=== PATIENT | male | born 1970 | race African-American/Black ===

== ENCOUNTER 2023-03-11 12:53 | Outpatient (REF) | payer OTHER, SELFPAY ==
--- NOTE | ~2023-03-11 | XR_ITS ---
EXAMINATION: Bilateral foot and ankle x-ray CLINICAL INFORMATION: Rheumatoid arthritis COMPARISON: None. TECHNIQUE: 3 views of the bilateral ankles and feet FINDINGS: Right ankle: Bone alignment is normal. No fracture or dislocation. The ankle mortise is normal. Soft tissues are normal. Right foot: Bone alignment is normal. No fracture or dislocation. Normal joint spaces. Normal soft tissues tissues. Left ankle: Bone alignment is normal. No fracture or dislocation. Normal ankle mortise. Normal soft tissues. Left foot: Bone alignment is normal. No fracture or dislocation. Normal joint spaces. Soft tissues are normal. XR/XR ankle LT min 3V IMPRESSION: Normal bilateral ankles and feet.
--- NOTE | ~2023-03-11 | XR_ITS ---
EXAMINATION: Bilateral hand and wrist x-ray CLINICAL INFORMATION: Rheumatoid arthritis COMPARISON: None. TECHNIQUE: 3 views of each hand and wrist FINDINGS: Left: Bone alignment is normal. No fracture or dislocation. Bone mineralization is normal. Joint spaces are normal. Soft tissues are normal. Right: Bone alignment is normal. No acute fracture or dislocation. Cortical thickening along the base of the second proximal phalanx questionable for old trauma. Mild arthritis at the first MCP joint with small osteophytes. Joint spaces are otherwise normal. Soft tissues are normal. 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 Question old trauma to the second finger.
--- NOTE | ~2023-03-11 | XR_ITS ---
EXAMINATION: Bilateral hand and wrist x-ray CLINICAL INFORMATION: Rheumatoid arthritis COMPARISON: None. TECHNIQUE: 3 views of each hand and wrist FINDINGS: Left: Bone alignment is normal. No fracture or dislocation. Bone mineralization is normal. Joint spaces are normal. Soft tissues are normal. Right: Bone alignment is normal. No acute fracture or dislocation. Cortical thickening along the base of the second proximal phalanx questionable for old trauma. Mild arthritis at the first MCP joint with small osteophytes. Joint spaces are otherwise normal. Soft tissues are normal. 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 Question old trauma to the second finger.
--- NOTE | ~2023-03-11 | XR_ITS ---
EXAMINATION: Bilateral foot and ankle x-ray CLINICAL INFORMATION: Rheumatoid arthritis COMPARISON: None. TECHNIQUE: 3 views of the bilateral ankles and feet FINDINGS: Right ankle: Bone alignment is normal. No fracture or dislocation. The ankle mortise is normal. Soft tissues are normal. Right foot: Bone alignment is normal. No fracture or dislocation. Normal joint spaces. Normal soft tissues tissues. Left ankle: Bone alignment is normal. No fracture or dislocation. Normal ankle mortise. Normal soft tissues. Left foot: Bone alignment is normal. No fracture or dislocation. Normal joint spaces. Soft tissues are normal. XR/XR ankle RT min 3V IMPRESSION: Normal bilateral ankles and feet.
--- NOTE | ~2023-03-11 | XR_ITS ---
EXAMINATION: Bilateral foot and ankle x-ray CLINICAL INFORMATION: Rheumatoid arthritis COMPARISON: None. TECHNIQUE: 3 views of the bilateral ankles and feet FINDINGS: Right ankle: Bone alignment is normal. No fracture or dislocation. The ankle mortise is normal. Soft tissues are normal. Right foot: Bone alignment is normal. No fracture or dislocation. Normal joint spaces. Normal soft tissues tissues. Left ankle: Bone alignment is normal. No fracture or dislocation. Normal ankle mortise. Normal soft tissues. Left foot: Bone alignment is normal. No fracture or dislocation. Normal joint spaces. Soft tissues are normal. XR/XR foot RT min 3V IMPRESSION: Normal bilateral ankles and feet.
--- NOTE | ~2023-03-11 | XR_ITS ---
EXAMINATION: Bilateral foot and ankle x-ray CLINICAL INFORMATION: Rheumatoid arthritis COMPARISON: None. TECHNIQUE: 3 views of the bilateral ankles and feet FINDINGS: Right ankle: Bone alignment is normal. No fracture or dislocation. The ankle mortise is normal. Soft tissues are normal. Right foot: Bone alignment is normal. No fracture or dislocation. Normal joint spaces. Normal soft tissues tissues. Left ankle: Bone alignment is normal. No fracture or dislocation. Normal ankle mortise. Normal soft tissues. Left foot: Bone alignment is normal. No fracture or dislocation. Normal joint spaces. Soft tissues are normal. XR/XR foot LT min 3V IMPRESSION: Normal bilateral ankles and feet.
[2023-03-11 14:25] LABS: MANUAL DIFF FLAG NO
[2023-03-11 15:29] LABS: Basophils Percent Auto 0.4 % (0-2); Eosinophils Percent Auto 0.6 % (0-4); Hematocrit 42.2 % (42.0-52.0); Hemoglobin 14.2 g/dl (14.0-18.0); Imm Gran Abs Auto 0.02 X10*3/uL (0.00-0.03); Imm Gran Pct Auto 0.4 % (0.0-0.4); Lymphocytes Absolute Auto 1.8 X10*3/uL (1.2-4.9); Lymphocytes Percent Auto 35.1 % (20-40); Mean Corpuscular HGB Conc 33.6 g/dl (31.0-36.0); Mean Corpuscular Hemoglobin 30.7 pg (27.0-33.0); Mean Corpuscular Volume 91.1 fL (80.0-98.0); Monocytes Absolute Auto 0.5 X10*3/uL (0.1-1.2); Neutrophils Absolute Auto 2.9 x10*3/uL (2.0-8.3); Neutrophils Percent Auto 54.5 % (45-73); Platelet Count 205 X10*3/uL (160-400); Red Blood Count 4.63 X10*6/uL (4.60-5.80); Red Cell Distribution Width 12.3 % (11.0-16.0); White Blood Count 5.2 X10*3/uL (4.8-10.8)
[2023-03-11 15:56] LABS: Alanine Aminotransferase 23 U/L (0-40); Albumin Level 4.4 g/dL (3.5-5.0); Alkaline Phosphatase 61 U/L (39-117); Anion Gap 15 (12-20); Aspartate Amino Transferase 17 U/L (5-37); Bilirubin Total 0.5 mg/dL (0.0-1.0); Blood Urea Nitrogen 14 mg/dL (9-16); C Reactive Protein 0.18 mg/dL (< or = 0.50); Calcium 9.7 mg/dL (8.4-10.2); Carbon Dioxide 26 mmol/L (22-29); Chloride 107 mmol/L (96-108); Estimated Glomerular Filt Rate 58; Glucose Random 93 mg/dL (60-115); Potassium 4.2 mmol/L (3.3-5.1); Rheumatoid Factor 19.1 IU/mL (<15.0); Sodium 144 mmol/L (135-145); Total Protein 6.6 g/dL (6.5-8.0)
[2023-03-11 16:13] LABS: Erythrocyte Sedimentation Rate 3 MM/HR (0-15)
[2023-03-12 03:58] LABS: HBc Num1 0.06 S/CO (0.00-0.79); HBsAGNum1 0.38 S/CO (0.00-0.99); Hepatitis A Antibody IgM 0.17 Index (0-0.79); Hepatitis B Core Antibody Nonreactive (Nonreactive); Hepatitis B Surface Antigen Negative (Negative); ~HepC Num1 0.23 S/CO (0.00-0.79); ~Hepatitis A Antibody IgM Nonreactive (Nonreactive); ~Hepatitis B Surface Antibody REACTIVE (Nonreactive); ~Hepatitis C Antibody Nonreactive (Nonreactive)
[2023-03-13 18:08] LABS: TS Negative Control Passed; TS Panel A 0; TS Panel B 0; TS Positive Control Passed; TSpotTB Negative (Negative)
[2023-03-14 16:28] LABS: Cyclic Citrullinated Peptide <16 UNITS
[2023-03-15 20:49] LABS: Anti DNA DS Antibody <1 IU/mL; Antibody to SS-A Antigen <1.0 NEG AI (<1.0 NEG); Antibody to SS-B Antigen <1.0 NEG AI (<1.0 NEG); SM/Ribonucleoprotein Ab <1.0 NEG AI (<1.0 NEG); Smith Protein <1.0 NEG AI (<1.0 NEG)
[2023-03-16 11:53] LABS: Complement C3 125 mg/dL (82-185)
[2023-03-16 13:33] LABS: IgA 108 mg/dL (47-310); IgG 725 mg/dL (600-1640); IgM 104 mg/dL (50-300)
[2023-03-16 22:42] LABS: Prot Elec - Albumin 4.3 g/dL (3.8-4.8); Prot Elec - Alpha1 0.3 g/dL (0.2-0.3); Prot Elec - Alpha2 0.6 g/dL (0.5-0.9); Prot Elec - Beta 1 0.4 g/dL (0.4-0.6); Prot Elec - Beta 2 0.3 g/dL (0.2-0.5); Prot Elec - Gamma 0.7 g/dL (0.8-1.7); Prot Elec - Total Protein 6.5 g/dL (6.1-8.1)
[2023-03-19 15:37] LABS: Anti Nuclear Antibody Screen NEGATIVE (NEGATIVE)
== END 2023-03-11 12:54 | disposition home or self-care (01) ==
LOC: HO.XRAY 12:53
PROVIDERS: PCP Internal Medicine; Visit Provider Student in an Organized Health Care Education/Training Program
DX: Z11.59 Encounter for screening for other viral diseases (principal); Z11.7 Encounter for testing for latent tuberculosis infection; M32.9 Systemic lupus erythematosus, unspecified; M06.9 Rheumatoid arthritis, unspecified; R76.8 Other specified abnormal immunological findings in serum
CPT/HCPCS: 36415; 73110; 73130; 73610; 73630; 80053; 82784; 84165; 85025; 85652; 86038; 86140; 86160; 86200; 86225; 86235; 86334; 86431; 86481; 86704; 86706; 86709; 86803; 87340; 99202

== ENCOUNTER 2023-05-28 13:43 | Outpatient (AMB) | payer OTHER, SELFPAY ==
[2023-05-28 13:45] VITALS: BP 124/88; PULSE 70; TEMP 36.6; O2SAT 97; BMI 30.1
--- NOTE | 2023-05-28 13:45 | A.OFFVIS_ITS ---
Intake Vital Signs 05/28/23 13:45 Height 5 ft 10 in Weight 209 lb 14.081 oz BMI 30.1 BP 124/88 Blood Pressure Location Rt brachial Position Sitting Pulse 70 Pulse Source Pulse Oximeter Temp 97.9 F Temp Source Skin Pulse Oximetry (%) 97 Intake Visit Reasons: RA Intake Note: Pt seen today for RA follow up. 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 Accompanied by: Significant Other Allergies prednisone [PREDNISONE] Allergy (Intermediate, Unverified 05/28/23 13:51) Mood change/anger Medication List - Last Reconciled 05/28/23 by Basilia Thomson MD baclofen 10 mg PO BEDTIME PRN blood sugar diagnostic (FreeStyle Lite Strips) As directed blood-glucose meter (FreeStyle Lite Meter kit) As directed hydroxychloroquine 200 mg PO BID hydroxyzine HCl 25 mg PO BEDTIME PRN lancets (FreeStyle Lancets) As directed naproxen 500 mg PO BID HPI HPI Comments History of Present Illness Details Patient returns for follow-up after completion of his blood work and x- rays. Continues to feel about the same Initial history: This is a 52-year-old male who presents for evaluation of multiple joint pain and positive rheumatoid factor. The condition started 7-8 years ago with patient having intermittent joint pain affecting his shoulders, hands, fingers, feet. States that the joint pain is intermittent and quite random. Alternates from 1 joint to the other. In August/September of 2021 he was diagnosed with infectious mononucleosis infection and was significantly fatigued for a few weeks and this was associated with worsening joint pain. Over the last few months the fatigue has improved but he continues to have intermittent flares of joint pain and stiffness, on some nights he would wake up in the middle of the night and would not be able to open a bottle of water due to significant hand pain and stiffness. He also has pain in his feet knuckles . He has morning stiffness lasting 30 minutes. 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 He denies any skin rashes. He is unaware of any family history of autoimmune rheumatic disease [facility] Medical History Bilateral carotid artery stenosis Chest pain CKD (chronic kidney disease) Diabetes mellitus type 2, controlled Dizziness Erectile dysfunction Gastroesophageal reflux disease Headache Hematuria History of COVID-19 Mixed hyperlipidemia Palpitation Thoracic aortic aneurysm (TAA) Surgical History H/O removal of cyst Family History Mother Afib Father No problems noted. Social History Alcohol intake: current Alcohol intake frequency: 0-2 drinks per day Patient Tobacco Use Status: Never used Tobacco Substance Use Type: Marijuana Review of Systems Const Reports weakness and Reports weight loss Eyes Reports blurry vision Musc Reports arthralgias and Reports stiffness Neuro Reports weakness Psych Reports abnormal sleep pattern, Reports anxiety and Reports depression Physical Exam Vital Signs: Last Vital Signs Temp 97.9 F 05/28/23 13:45 Pulse 70 05/28/23 13:45 BP 124/88 05/28/23 13:45 Pulse Ox 97 05/28/23 13:45 BMI result Body Mass Index 30.1 Const General: cooperative, healthy appearing and comfortable Nutritional Appearance: overweight Orientation/consciousness: patient oriented x3 Limitations: no limitations HEENT Head: Yes normocephalic and Yes atraumatic Mouth: moist mucous membranes Resp Effort & Inspection: normal respiratory effort and able to speak in complete sentences Cardio Rate: regular rate Rhythm: regular rhythm Heart sounds: S1 normal heart sound present GI Inspection: No distended Palpation (GI): Soft to palpation and nontender Skin General skin exam: no rashes or lesions noted Neuro General: patient oriented x3 Extrem Other: Bilateral wrist tenderness to palpation and pain with full flexion extension Mildly weak bilateral hand 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 LEFT SHOULDER, 4 VIEWS ? HISTORY: Acute pain left shoulder. Workman's comp. Injury 01/18/2023. ? PRIORS: None. ? FINDINGS: ? There is moderate degenerative change of the left acromioclavicular joint. ? There is mild degenerative change of the thoracic spine. ? No fracture, malalignment, or foreign body is seen. No soft tissue abnormality is seen. ? IMPRESSION IMPRESSION: Degenerative changes as described. ? No acute findings. X-RAY EXAM OF THORACIC SPINE Exam Date: 04/14/2023 1:28 PM Ordering Diagnosis: Mid back pain ? Thoracic spine, 2 views. History mid back pain. ? Vertebral bodies are maintained in height. There is minimal anterior lateral discogenic spurring in the lower thoracic segment. No fractures, dislocations or destructive lesions. Pedicles are maintained. ? CONCLUSIONS: Discogenic spurring in the lower thoracic segment. ? Assessment & Plan Assessment & Plan (1) Rheumatoid factor positive: Code(s): R76.8 - Other specified abnormal immunological findings in serum Plan: This is a 52-year-old male who presents for evaluation of positive rheumatoid factor in setting of multiple joint pain. Rheumatoid factor was positive in the setting of infectious mononucleosis. Rheumatoid factor remains borderline positive. Patient continues to have intermittent pain and stiffness of his small small and large joints. Clinical picture consistent with new onset seropositive RA. Will need to start DMARDs. Discussed risks and benefits of hydroxychloroquine. Patient agreed to proceed. 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 Referred patient to Ophthalmology for an eye exam. (3) Fatigue: Code(s): R53.83 - Other fatigue Qualifiers: Encounter type: subsequent encounter Plan: Mentions that his main complaint is fatigue and exhaustion. I stated that there are multiple causes of fatigue and that can be further discussed with his PCP. Will re-evaluate his fatigue after 3 months on hydroxychloroquine. 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
== END 2023-05-28 14:17 | disposition home or self-care (01) ==
PROVIDERS: PCP Internal Medicine; Visit Provider Student in an Organized Health Care Education/Training Program
DX: R76.8 Other specified abnormal immunological findings in serum (principal); Z79.899 Other long term (current) drug therapy; R53.83 Other fatigue
CPT/HCPCS: 99214

== ENCOUNTER → 2023-05-28 13:43 | Outpatient (BNVA) | payer OTHER, SELFPAY | PROVIDERS: Visit Provider Student in an Organized Health Care Education/Training Program | DX: R76.8 Other specified abnormal immunological findings in serum (principal); R53.83 Other fatigue; Z79.899 Other long term (current) drug therapy | CPT/HCPCS: 99212 ==

== ENCOUNTER 2023-12-28 09:29 | Outpatient (AMB) | payer OTHER, SELFPAY ==
--- NOTE | 2023-12-28 09:39 | MHC.OFFVIS ---
Intake Vital Signs 12/28/23 09:40 Height 5 ft 10 in Weight 222 lb 3.615 oz BMI 31.9 BP 144/86 H Blood Pressure Location Rt brachial Position Sitting Pulse 74 Pulse Source Pulse Oximeter Temp 97.2 F Pulse Oximetry (%) 98 Oxygen Delivery Method Room Air Intake Visit Reasons: FMS Intake Note: Pt last seen 05/28/23, presents today for follow up. He was started on plaquenil and referred to ophthalmology. Eye and Lasik notes in chart. S/p testicular surgery at [facility]. 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 Patient took hydroxychloroquine regularly for 4-5 months. He stated that he had 3 episodes when he felt burning in his buttocks radiating to his lower extremities. He was also having episodes of pressure behind the eye, watery eye. 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 He discontinued hydroxychloroquine and those symptoms resolved. 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 He continues to have multiple other pains such as shoulders, lower back and hips. Initial history: This is a 52-year-old male who presents for evaluation of multiple joint pain and positive rheumatoid factor. The condition started 7-8 years ago with patient having intermittent joint pain affecting his shoulders, hands, fingers, feet. States that the joint pain is intermittent and quite random. Alternates from 1 joint to the other. In August/September of 2021 he was diagnosed with infectious mononucleosis infection and was significantly fatigued for a few weeks and this was associated with worsening joint pain. Over the last few months the fatigue has improved but he continues to have intermittent flares of joint pain and stiffness, on some nights he would wake up in the middle of the night and would not be able to open a bottle of water due to significant hand pain and stiffness. He also has pain in his feet knuckles . He has morning stiffness lasting 30 minutes. 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 He denies any skin rashes. He is unaware of any family history of autoimmune rheumatic disease [facility] Medical History Erectile dysfunction Hematuria CKD (chronic kidney disease) History of COVID-19 Gastroesophageal reflux disease Mixed hyperlipidemia Headache Dizziness Chest pain Palpitation Thoracic aortic aneurysm (TAA) Bilateral carotid artery stenosis Diabetes mellitus type 2, controlled Surgical History History of testicular surgery H/O removal of cyst Family History Mother Afib Father No problems noted. Social History Alcohol intake: current Alcohol intake frequency: 0-2 drinks per day Patient Tobacco Use Status: Never used Tobacco Substance Use Type: Marijuana Review of Systems [facility] Reports back pain, Reports arthralgias and Denies joint swelling Physical Exam Vital Signs: Last Vital Signs Temp 97.2 F 12/28/23 09:40 Pulse 74 12/28/23 09:40 BP 144/86 H 12/28/23 09:40 Pulse Ox 98 12/28/23 09:40 Oxygen Delivery Method Room Air 12/28/23 09:40 BMI result Body Mass Index 31.9 Const General: cooperative, healthy appearing and comfortable Nutritional Appearance: overweight Orientation/consciousness: patient oriented x3 Limitations: no limitations HEENT Head: Yes normocephalic and Yes atraumatic Mouth: moist mucous membranes Resp Effort & Inspection: normal respiratory effort and able to speak in complete sentences Cardio Rate: regular rate Rhythm: regular rhythm Heart sounds: S1 normal heart sound present GI Inspection: No distended Palpation (GI): Soft to palpation and nontender Skin General skin exam: no rashes or lesions noted Neuro General: patient oriented x3 Extrem Other: No wrist tenderness to palpation today and no pain with flexion and extension Normal hand wrapper stemmer hand strength bilaterally Normal range of motion of elbows and shoulders Normal nailfold capillaroscopy Results Reviewed Results Reviewed: X-RAY EXAM OF SHOULDER, COMPLETE Exam Date: 01/19/2023 1:42 PM Ordering Diagnosis: Acute pain of left shoulder ? LEFT SHOULDER, 4 VIEWS ? HISTORY: Acute pain left shoulder. Workman's comp. Injury 01/18/2023. ? PRIORS: None. ? FINDINGS: ? There is moderate degenerative change of the left acromioclavicular joint. ? There is mild degenerative change of the thoracic spine. ? No fracture, malalignment, or foreign body is seen. No soft tissue abnormality is seen. ? IMPRESSION IMPRESSION: Degenerative changes as described. ? No acute findings. X-RAY EXAM OF THORACIC SPINE Exam Date: 04/14/2023 1:28 PM Ordering Diagnosis: Mid back pain ? Thoracic spine, 2 views. History mid back pain. ? Vertebral bodies are maintained in height. There is minimal anterior lateral discogenic spurring in the lower thoracic segment. No fractures, dislocations or destructive lesions. Pedicles are maintained. ? CONCLUSIONS: Discogenic spurring in the lower thoracic segment. ? Assessment & Plan Assessment & Plan (1) Rheumatoid factor positive: Comment: +RF -ve CCP dx 05/2023 HCQ 05/2023 effective self DC 11/2023 (side effects, not likely related to HCQ) Code(s): R76.8 - Other specified abnormal immunological findings in serum Plan: This is a 53-year-old male with seropositive RA who returns for follow-up. Patient took hydroxychloroquine for 4-5 months with significantly improved stiffness and strength of his hands. Continues to have polyarthralgias which are likely degenerative in nature. Patient self discontinued hydroxychloroquine due to side effects. I explained to patient that those symptoms are highly unlikely to be related hydroxychloroquine. There is no active synovitis today. At this point patient will watch his symptoms and reach out to clinic if he has any recurrent symptoms. Follow-up in 6 months for re-evaluation (2) Long-term use of hydroxychloroquine: Code(s): Z79.899 - Other retirement (current) drug therapy Plan: Patient was evaluated by Ophthalmology and cleared to continue hydroxychloroquine. Plan I spent 29 minutes reviewing patient's chart, evaluating patient, counseling patient and documenting in the chart Coding Level of Care Code Est Pt Level 4 (99655) Diagnoses Rheumatoid factor positive R76.8 Long-term use of hydroxychloroquine Z79.899
[2023-12-28 09:40] VITALS: BP 144/86; PULSE 74; TEMP 36.2; O2SAT 98; BMI 31.9
== END 2023-12-28 10:11 | disposition home or self-care (01) ==
PROVIDERS: PCP Internal Medicine; Visit Provider Student in an Organized Health Care Education/Training Program
DX: R76.8 Other specified abnormal immunological findings in serum (principal); Z79.899 Other long term (current) drug therapy
CPT/HCPCS: 99214

== ENCOUNTER → 2023-12-28 09:29 | Outpatient (BNVA) | payer OTHER, SELFPAY | PROVIDERS: PCP Internal Medicine; Visit Provider Student in an Organized Health Care Education/Training Program | DX: R76.8 Other specified abnormal immunological findings in serum (principal); Z79.899 Other long term (current) drug therapy | CPT/HCPCS: 99212 ==

== ENCOUNTER 2024-09-25 10:49 | Outpatient (AMB) | payer OTHER, SELFPAY ==
[2024-09-25 11:19] VITALS: BMI 29.7
--- NOTE | 2024-09-25 11:19 | A.OFFVIS_ITS ---
VS Expanded 09/25/24 11:19 09/27/24 09:32 Height 5 ft 10 in 5 ft 10 in Weight 207 lb 3.752 oz 207 lb BMI 29.7 29.7 Intake Visit Reasons: pancreatic insufficiency/CONFIRMED Allergies prednisone [PREDNISONE] Allergy (Intermediate, Unverified 12/28/23 09:43) Mood change/anger Nutrition Presentation Details: Pt presents for MNT for pancreatic insufficiency. Pt has hx of T2DM dx in 2010, CKD stage 3 Pt reports taking Creon 3 times a week Pt reports he is on no DM meds Pt did not bring glucometer to this appt, showed a picture of freestyle glucometer with BG level at 36 and 38. Pt reports having drank juice to treat low bg and this increased BG to 91 . Pt reports this may happen on occasion with symptoms of headaches. Then reports having other episodes of blood sugar above 180 after the meals. Pt reports having made dietary modifications , reducing fat intake and working on choosing fruits. He reports taking Creon 1-3 times a week , having reduced it due to constipation. Pt denies diarrhea, reports constipation has lessened however is concerned about low blood sugar reactions. Pt reports typical meal : B: smoothie (fruits/almond milk) as breakfast snack: handfuls of nuts L: tuna fish sandwich on white bread Dinner: rice/chicken or turkey sandwich snack: fruits or nuts Pt reports working on reducing high fat foods, fried/highly processed foods ETOH- 1/d BS Monitoring Most Recent Diabetes Results: Creatinine 1.30 mg/dL (0.5-1.4) 03/11/23 Blood Urea Nitrogen 14 mg/dL (9-16) 03/11/23 Sodium 144 mmol/L (135-145) 03/11/23 Potassium 4.2 mmol/L (3.3-5.1) 03/11/23 Chloride 107 mmol/L (96-108) 03/11/23 Carbon Dioxide 26 mmol/L (22-29) 03/11/23 Calcium 9.7 mg/dL (8.4-10.2) 03/11/23 AST 17 U/L (5-37) 03/11/23 ALT 23 U/L (0-40) 03/11/23 Total Protein 6.6 g/dL (6.5-8.0) 03/11/23 Albumin 4.4 g/dL (3.5-5.0) 03/11/23 BOH-Nckrasi-Py.Lakia Equation Height: 5 ft 10 in Weight: 207 lb Resting Metabolic Rate: 1798.41 Calculated Activity Level: Mild Activity Calories Needed to Maintain Weight: 2472.81 Diagnosis Nutrition problem #1: food nutri know defi As related to (etiology) #1: diagnosis (pancreatic insufficiency and Pt's concerns of erratic bg levels) As evidenced by (sign/symptom) #1: knowledge deficit of diet (lacking balance between protein/carbs and pancreatic enzymes ) [facility] Medical History Erectile dysfunction Hematuria CKD (chronic kidney disease) History of COVID-19 Gastroesophageal reflux disease Mixed hyperlipidemia Headache Dizziness Chest pain Palpitation Thoracic aortic aneurysm (TAA) Bilateral carotid artery stenosis Diabetes mellitus type 2, controlled Surgical History History of testicular surgery H/O removal of cyst Family History Mother Afib Father No problems noted. Social History Alcohol intake: current Alcohol intake frequency: 0-2 drinks per day Patient Tobacco Use Status: Never used Tobacco Substance Use Type: Marijuana Assessment & Plan Assessment & Plan (1) Type 2 diabetes mellitus: Comment: With pancreatic insufficiency: Recommend for Medical Provider to monitor for nutrient deficiencies: Vitamin A, D, E, K, D, Calcium and B12 .Thank you Code(s): E11.9 - Type 2 diabetes mellitus without complications Category: Medical Plan: Wt: 94 Kg ( 10/17 ) Est kcal needs as per MSJ: 2500 (40% carb, 30% protein/fat) Est fluid needs as per 25-30 ml/d: 2800 Est prot per day as per 1 g/kg bw: 94 Recommend fiber intake : 8-10 g per day and gradually increase to 25-28 g per day for women and 35-38 g for men or as tolerated Recommend sodium intake per day : less than 2300 mg Educated patient on: ( R = reviewed V = verbalizes understanding N/R = needs review N/A = not applicable * Food sources of carbohydrate, adequate serving sizes and its role in various health conditions: R V N/R * Differences between complex carbohydrates a simple carbohydrates, role of fiber in diet: R V N/R * Lean protein sources of foods: R V NR * Differences between types of fats and role in diet (mono on saturated fat fatty acids, saturated fatty acids, trans fats): R V N/R * Food sources of sodium in salt and healthy modifications for heart health in kidney health: R V R/V * Vitamins and minerals: R V N/R * Healthy plate method concept: R V N/R * Physical activity: Benefits a precaution: R V N/R * Hypoglycemia protocol (rule of 15): R V N/R * Dietary prevention of Hyperglycemia: R V R/V (2) Pancreatic insufficiency: Code(s): K86.89 - Other specified diseases of pancreas Category: Medical Plan: * Choose low fat foods, combine lean protein food with adequate amount of carbohydrates * work on balancing meals (prot/carb/small amount of fiber) to prevent high fluctuation in blood sugar * hydration * prevention of malnutrition * Abstinence from alcohol Patient Instructions: Abstain from alcoholic beverages continue having small meals throughout the day an add low fat protein with the meal/snacks (example fairlife protein shake (ultra filtered well tolerated by people with lactose intolerant and is fortified with vitamin D,A, Calcium) with fruits to make a smoothie or having canned fruits in its own juice with lean turkey slices, add tofu to soups , switch to low fat lactose free milk or soy milk due to its content of protein, see list of food choices Continue monitoring blood glucose see how combination of foods balances blood sugar levels treat low blood sugar by having 1/2 cup of juice or 1 cup of low fat milk , re test blood sugar 15 minutes after , repeat treatment if blood sugar below 70, then contact your doctor for further evaluation call for nutrition questions prior to next f/u Coding Level of Care Code Nutr Indiv Intake (66925) Diagnoses Type 2 diabetes mellitus E11.9 Pancreatic insufficiency K86.89 Time Spent (min) 30
[2024-09-27 09:32] VITALS: BMI 29.7
== END 2024-09-25 12:06 | disposition home or self-care (01) ==
PROVIDERS: PCP Internal Medicine; Visit Provider Dietitian, Registered
DX: E11.9 Type 2 diabetes mellitus without complications (principal); K86.89 Other specified diseases of pancreas

== ENCOUNTER → 2024-09-25 10:49 | Outpatient (BNVA) | payer OTHER, SELFPAY | PROVIDERS: PCP Internal Medicine; Visit Provider Dietitian, Registered | DX: E11.22 Type 2 diabetes mellitus with diabetic chronic kidney disease (principal); N18.30 Chronic kidney disease, stage 3 unspecified; K86.89 Other specified diseases of pancreas; Z71.3 Dietary counseling and surveillance; Z79.899 Other long term (current) drug therapy | CPT/HCPCS: 97802 ==

== ENCOUNTER → 2024-10-30 10:39 | Outpatient (BNVA) | payer OTHER, SELFPAY | PROVIDERS: PCP Internal Medicine; Visit Provider Dietitian, Registered | DX: E11.9 Type 2 diabetes mellitus without complications (principal); K86.89 Other specified diseases of pancreas | CPT/HCPCS: 97803 ==

== ENCOUNTER → 2024-10-30 10:39 | Outpatient (AMB) | payer OTHER, SELFPAY ==
--- NOTE | 2024-10-30 11:26 | A.OFFVIS_ITS ---
VS Expanded 10/30/24 11:27 Height 5 ft 10 in Weight 213 lb 13.574 oz BMI 30.7 Intake Visit Reasons: Pancreatic insufficiency/Left vm Allergies prednisone [PREDNISONE] Allergy (Intermediate, Unverified 12/28/23 09:43) Mood change/anger Nutrition Presentation Details: Pt presents for MNT f/u for pancreatic insufficiency Pt reports feeling better, denies having had hypoglycemia symptoms since the last nutrition visit. Pt reports working on including lean protein foods admits to larger portion of foods/high fat foods/etoh over holiday celebration BS Monitoring Most Recent Diabetes Results: Creatinine 1.30 mg/dL (0.5-1.4) 03/11/23 Blood Urea Nitrogen 14 mg/dL (9-16) 03/11/23 Sodium 144 mmol/L (135-145) 03/11/23 Potassium 4.2 mmol/L (3.3-5.1) 03/11/23 Chloride 107 mmol/L (96-108) 03/11/23 Carbon Dioxide 26 mmol/L (22-29) 03/11/23 Calcium 9.7 mg/dL (8.4-10.2) 03/11/23 AST 17 U/L (5-37) 03/11/23 ALT 23 U/L (0-40) 03/11/23 Total Protein 6.6 g/dL (6.5-8.0) 03/11/23 Albumin 4.4 g/dL (3.5-5.0) 03/11/23 [facility] Medical History Erectile dysfunction Hematuria CKD (chronic kidney disease) History of COVID-19 Gastroesophageal reflux disease Mixed hyperlipidemia Headache Dizziness Chest pain Palpitation Thoracic aortic aneurysm (TAA) Bilateral carotid artery stenosis Diabetes mellitus type 2, controlled Surgical History History of testicular surgery H/O removal of cyst Family History Mother Afib Father No problems noted. Social History Alcohol intake: current Alcohol intake frequency: 0-2 drinks per day Patient Tobacco Use Status: Never used Tobacco Substance Use Type: Marijuana Assessment & Plan Assessment & Plan (1) Type 2 diabetes mellitus: Comment: With pancreatic insufficiency: Recommend for Medical Provider to monitor for nutrient deficiencies: Vitamin A, D, E, K, Calcium and B12 .Thank you Code(s): E11.9 - Type 2 diabetes mellitus without complications Category: Medical Plan: Wt: 94 Kg ( 10/17 ), 97kg ( 1.6.24) Est kcal needs as per MSJ: 2500 (40% carb, 30% protein/fat) Est fluid needs as per 25-30 ml/d: 2800 Est prot per day as per 1 g/kg bw: 94 Recommend fiber intake : 8-10 g per day and gradually increase to 25-28 g per day for women and 35-38 g for men or as tolerated Recommend sodium intake per day : less than 2300 mg Educated patient on: ( R = reviewed V = verbalizes understanding N/R = needs review N/A = not applicable * Food sources of carbohydrate, adequate serving sizes and its role in various health conditions: R V N/R * Differences between complex carbohydrates a simple carbohydrates, role of fiber in diet: R * Lean protein sources of foods: R V NR * Differences between types of fats and role in diet (mono on saturated fat fatty acids, saturated fatty acids, trans fats): R * Food sources of sodium in salt and healthy modifications for heart health in kidney health: R V R/V * Vitamins and minerals: R V N/R * Healthy plate method concept: R V N/R * Physical activity: Benefits a precaution: R V N/R * Hypoglycemia protocol (rule of 15): R V * Dietary prevention of Hyperglycemia: R V (2) Pancreatic insufficiency: Code(s): K86.89 - Other specified diseases of pancreas Category: Medical Plan: * Choose low fat foods, combine lean protein food with adequate amount of carbohydrates * work on balancing meals (prot/carb/small amount of fiber) to prevent high fluctuation in blood sugar * hydration * prevention of malnutrition * Abstinence from alcohol Patient Instructions: Continue choosing low fat foods (baked, steamed, not fried,) Include lean protein foods (boiled eggs, fish, poultry, reduce on ultra processed meats)following healthy plate method Abstain from alcohol consumption Coding Level of Care Code Nutr Indiv Subseq ([id number]) Diagnoses Type 2 diabetes mellitus E11.9 Pancreatic insufficiency K86.89 Time Spent (min) 30
[2024-10-30 11:27] VITALS: BMI 30.7
== END ==
PROVIDERS: PCP Internal Medicine; Visit Provider Dietitian, Registered
DX: E11.9 Type 2 diabetes mellitus without complications (principal); K86.89 Other specified diseases of pancreas